=== PATIENT | male | born 1970 | race African-American/Black ===

== ENCOUNTER 2021-07-29 17:15 | Emergency (ER) | payer OTHER ==
[2021-07-29 17:20] VITALS: TEMP 98.9; BMI 30.8
[2021-07-29] MEDS ORDERED: ONDANSETRON *ODT* 4 MG TABLET SL ONE (17:50)
[2021-07-29] MEDS ORDERED: ONDANSETRON *ODT* 4 MG TABLET ONE (18:01)
[2021-07-29 18:09] VITALS: BP 172/89; PULSE 87
[2021-07-29] MEDS ORDERED: IBUPROFEN 400 MG TABLET (FP) PO ONE ×2 (18:20→18:26)
[2021-07-31 15:07] LABS: SARS-CoV-2 NAA Not Detected (Not Detected)
== END 2021-07-29 18:35 | disposition home or self-care (01) ==
LOC: FER 17:15
DX: R11.0 Nausea (principal)
CPT/HCPCS: 99283-25; C9803-CS; Q0162; U0003; U0005

== ENCOUNTER 2021-12-30 04:01 | Emergency (ER) | payer OTHER ==
[2021-12-30 04:20] VITALS: TEMP 98.2; BMI 31.6
[2021-12-30] MEDS ORDERED: SODIUM CHLORIDE 0.9% 500 ML INFUS.BAG IV ONE (04:54)
[2021-12-30] MEDS ORDERED: ACETAMINOPHEN 1000 MG/100 ML BAG IVPB ONE (04:55)
[2021-12-30] MEDS ORDERED: ACETAMINOPHEN INJECTION 100 ML IVPB ONE (04:56)
[2021-12-30] MEDS ORDERED: DIPHTH,PERTUSS(ACELL),TET 0.5 ML DISP.SYRIN IM ONE ×2 (05:00→05:02)
[2021-12-30] MEDS ORDERED: BACITRACIN 15 GM TUBE TOPICAL OINTMENT TP ONE (05:06)
[2021-12-30 05:42] LABS: CALCIUM 9.1 mg/dL (8.5-10.1)
[2021-12-30 05:43] LABS: ALBUMIN 3.8 g/dl (3.4-5.0); BLOOD UREA NITROGEN 12.4 mg/dL (7-18)
[2021-12-30 05:46] LABS: CREATININE 1.3 mg/dL (0.55-1.3)
[2021-12-30 05:48] LABS: BILIRUBIN,TOTAL 0.3 mg/dL (0.2-1); TOT PROT 7.6 g/dl (6.4-8.2)
[2021-12-30 07:11] VITALS: BP 148/87; PULSE 95; RESP 16
[2021-12-30] MEDS ORDERED: oxyCODONE HCL 5 MG TABLET PO ONE (07:41)
[2021-12-30] MEDS ORDERED: oxyCODONE HCL 5 MG TABLET ONE (07:45)
== END 2021-12-30 07:59 | disposition home or self-care (01) ==
LOC: FER 04:01
PROC: 3E0333Z Introduction of Anti-inflammatory into Peripheral Vein, Percutaneous Approach (ICD-10-PCS; principal; 2021-12-30)
PROC: 3E0234Z Introduction of Serum, Toxoid and Vaccine into Muscle, Percutaneous Approach (ICD-10-PCS; 2021-12-30)
DX: S60.511A Abrasion of right hand, initial encounter (principal); S02.40FA Zygomatic fracture, left side, initial encounter for closed fracture; S62.242A Displaced fracture of shaft of first metacarpal bone, left hand, initial encounter for closed fracture; V28.5XXA Motorcycle passenger injured in noncollision transport accident in traffic accident, initial encounter
CPT/HCPCS: 36415; 70450-TC; 71046-TC-FY; 72125-TC; 73070-TC-LT-FY; 73130-TC-RT-FY; 73560-TC-LT-FY; 80053; 80307; 90715; 99285-25

== ENCOUNTER 2023-05-30 14:20 | Emergency (ER) | payer OTHER ==
[2023-05-30 14:43] VITALS: BP 151/108; PULSE 81; RESP 16; TEMP 98.8; BMI 30.2
[2023-05-30] MEDS ORDERED: KETOROLAC TROMETHAMINE 30 MG/1 ML VIAL ONE (15:24)
[2023-05-30] MEDS: SODIUM CHLORIDE 0.9% 1000 ML INFUS.BAG IV ONE (15:35)
[2023-05-30] MEDS: KETOROLAC TROMETHAMINE 30 MG/1 ML VIAL IVPUSH ONE (15:35)
[2023-05-30 15:44] LABS: HEMATOCRIT 49.8 % (35.4-49); HEMOGLOBIN 16.7 G/dL (11.7-16.9); MCH 30.5 pg (25.7-33.7); MCHC 33.6 g/dl (32.0-35.9); MEAN CELL VOLUME 90.9 fl (80-96); MEAN PLT VOLUME 8.5 fl (7.5-11.1); RBC 5.48 10^6/uL (4.00-5.60); RDW 14.3 % (11.9-15.9); WHITE BLOOD COUNT 7.3 10^3/uL (4.0-10.8)
[2023-05-30 15:47] LABS: PLATELET ESTIMATE ADEQUATE
[2023-05-30 15:52] LABS: ALBUMIN 4.6 g/dl (3.4-5.0); BILIRUBIN,TOTAL 0.7 mg/dl (0.2-1); CALCIUM 9.6 mg/dl (8.5-10.1); POTASSIUM 3.8 mmol/L (3.5-5.1); TOT PROT 7.5 g/dl (6.4-8.2)
== END 2023-05-30 19:00 | disposition home or self-care (01) ==
LOC: FER 14:20
PROC: 3E0333Z Introduction of Anti-inflammatory into Peripheral Vein, Percutaneous Approach (ICD-10-PCS; principal; 2023-05-30)
DX: R10.32 Left lower quadrant pain (principal); R11.2 Nausea with vomiting, unspecified
CPT/HCPCS: 36415; 74176-TC; 80053; 81003; 83690; 85027; 87086; 99284-25

== ENCOUNTER 2023-09-11 08:54 | Emergency (ER) | payer OTHER ==
[2023-09-11 09:16] VITALS: BP 156/106; PULSE 87; RESP 20; TEMP 98.2; BMI 30.8
[2023-09-11] MEDS ORDERED: FAMOTIDINE 20 MG/50 ML IVPB 20 MG/50 ML MG IVPB ONE (09:22)
[2023-09-11] MEDS ORDERED: MAG HYDROX/AL HYDROX/SIMETH 30 ML UNIT-DOSE CUP ONE (09:22)
[2023-09-11] MEDS ORDERED: ACETAMINOPHEN INJECTION 100 ML IVPB ONE (09:22)
[2023-09-11] MEDS ORDERED: ONDANSETRON 4 MG/2 ML VIAL ONE (09:23)
[2023-09-11] MEDS: LACTATED RINGERS SOLUTION 1000 ML INFUS.BAG IV ONE (10:06)
[2023-09-11] MEDS: FAMOTIDINE 20 MG/50 ML IVPB 20 MG/50 ML MG IVPB ONE (10:07)
[2023-09-11] MEDS: MAG HYDROX/AL HYDROX/SIMETH 30 ML UNIT-DOSE CUP PO ONE (10:07)
[2023-09-11] MEDS: ONDANSETRON 4 MG/2 ML VIAL IVPUSH ONE (10:07)
[2023-09-11] MEDS: ACETAMINOPHEN 1000 MG/100 ML BAG IVPB ONE (10:07)
[2023-09-11 10:36] LABS: ALBUMIN 5.1 g/dl (3.4-5.0); BILIRUBIN,TOTAL 0.9 mg/dl (0.2-1); CALCIUM 10.1 mg/dl (8.5-10.1); HEMATOCRIT 50.5 % (35.4-49); HEMOGLOBIN 16.8 G/dL (11.7-16.9); MCH 30.8 pg (25.7-33.7); MCHC 33.2 g/dl (32.0-35.9); MEAN CELL VOLUME 92.6 fl (80-96); MEAN PLT VOLUME 8.3 fl (7.5-11.1); PLATELET COUNT 275.4 10^3/uL (134-434); POTASSIUM 3.6 mmol/L (3.5-5.1); RBC 5.45 10^6/uL (4.00-5.60); RDW 13.9 % (11.9-15.9); TOT PROT 8.1 g/dl (6.4-8.2); WHITE BLOOD COUNT 8.9 10^3/uL (4.0-10.8)
[2023-09-11] MEDS ORDERED: FAMOTIDINE 20 MG TABLET ONE (10:40)
[2023-09-11] MEDS ORDERED: ONDANSETRON *ODT* 4 MG TABLET ONE (10:40)
[2023-09-11] MEDS: ONDANSETRON *ODT* 4 MG TABLET SL ONE (10:47)
[2023-09-11] MEDS: FAMOTIDINE 10 MG TABLET PO ONE (10:47)
[2023-09-11 10:53] LABS: PLATELET ESTIMATE ADEQUATE
== END 2023-09-11 11:26 | disposition home or self-care (01) ==
LOC: FER 08:54
PROC: 3E033NZ Introduction of Analgesics, Hypnotics, Sedatives into Peripheral Vein, Percutaneous Approach (ICD-10-PCS; principal; 2023-09-11)
PROC: 3E033GC Introduction of Other Therapeutic Substance into Peripheral Vein, Percutaneous Approach (ICD-10-PCS; 2023-09-11)
DX: R10.9 Unspecified abdominal pain (principal); R11.2 Nausea with vomiting, unspecified; R19.7 Diarrhea, unspecified; R53.83 Other fatigue
CPT/HCPCS: 36415; 80053; 85027; 99284-25; J0131; Q0162

== ENCOUNTER 2024-02-29 08:50 | Emergency (ER) | payer OTHER ==
[2024-02-29 08:59] VITALS: RESP 18; TEMP 98.2; BMI 29.0
[2024-02-29] MEDS ORDERED: ONDANSETRON 4 MG/2 ML VIAL ONE (09:27)
[2024-02-29] MEDS ORDERED: morphine SULFATE 4 MG/ML VIAL ONE ×2 (09:27→14:53)
[2024-02-29] MEDS: ONDANSETRON 4 MG/2 ML VIAL IVPUSH ONE (10:00)
[2024-02-29] MEDS: SODIUM CHLORIDE 500 ML IV STA (10:06)
[2024-02-29] MEDS: morphine CARPU-JECT 4 MG/1 ML DISP.SYRIN IVPUSH ONE ×2 (10:06→14:57)
[2024-02-29 10:24] LABS: INR 1.1 (0.83-1.09); PROTHROMBIN TIME (PATIENT) 12.5 SEC (9.7-13.0)
[2024-02-29 10:31] LABS: HEMATOCRIT 48.6 % (35.4-49); HEMOGLOBIN 16.4 G/dL (11.7-16.9); MCH 31.1 pg (25.7-33.7); MCHC 33.8 g/dl (32.0-35.9); MEAN CELL VOLUME 91.9 fl (80-96); MEAN PLT VOLUME 8.2 fl (7.5-11.1); PLATELET COUNT 283.8 10^3/uL (134-434); RBC 5.29 10^6/uL (4.00-5.60); RDW 13.1 % (11.9-15.9); WHITE BLOOD COUNT 7.4 10^3/uL (4.0-10.8)
[2024-02-29 10:42] LABS: PLATELET ESTIMATE ADEQUATE
[2024-02-29 15:54] LABS: ALBUMIN 4.6 g/dl (3.4-5.0); CALCIUM 9.3 mg/dl (8.5-10.1); POTASSIUM 4.1 mmol/L (3.5-5.1); TOT PROT 7.7 g/dl (6.4-8.2)
[2024-02-29] MEDS ORDERED: hydrALAZINE HCL 20 MG/ML VIAL ONE (17:17)
[2024-02-29] MEDS: hydrALAZINE HCL 20 MG/ML VIAL IVPUSH ONE (17:23)
[2024-02-29 19:23] LABS: URINE APPEARANCE CLEAR; URINE BILIRUBIN NEGATIVE (NEGATIVE); URINE COLOR YELLOW; URINE GLUCOSE (UA) NEGATIVE (NEGATIVE); URINE KETONE TRACE (NEGATIVE)
[2024-02-29 19:24] LABS: EPI CELLS 3 /uL (0-25.1); HYALINE CASTS 0.13 /uL (0-3.1); PH,URINE 6.5 (5.0-8.0); URINE BACTERIA 1.8 /uL (0-1359); URINE LEUK ESTERASE NEGATIVE (NEGATIVE); URINE NITRITE NEGATIVE (NEGATIVE); URINE PROTEIN TRACE (NEGATIVE); URINE RBC 23.8 /uL (0-23.9); URINE WBC 10.4 /uL (0-25.8)
[2024-02-29 19:44] VITALS: BP 144/95; PULSE 89
[2024-02-29] MEDS ORDERED: PANTOPRAZOLE SODIUM 40 MG VIAL ONE (19:46)
[2024-02-29] MEDS ORDERED: MAG HYDROX/AL HYDROX/SIMETH 30 ML UNIT-DOSE CUP ONE (19:46)
[2024-02-29] MEDS ORDERED: FAMOTIDINE 20 MG/50 ML IVPB 20 MG/50 ML MG IVPB ONE (19:47)
[2024-02-29] MEDS: MAG HYDROX/AL HYDROX/SIMETH 30 ML UNIT-DOSE CUP PO ONE (20:01)
[2024-02-29] MEDS: FAMOTIDINE 20 MG/50 ML IVPB 20 MG/50 ML MG IVPB ONE (20:01)
[2024-02-29] MEDS: PANTOPRAZOLE SODIUM 40 MG VIAL IVPUSH ONE (20:01)
== END 2024-02-29 20:53 | disposition home or self-care (01) ==
LOC: JER 08:50 → FER 08:50 → JER 20:53
PROC: 3E033GC Introduction of Other Therapeutic Substance into Peripheral Vein, Percutaneous Approach (ICD-10-PCS; principal; 2024-02-29)
PROC: 3E033GC Introduction of Other Therapeutic Substance into Peripheral Vein, Percutaneous Approach (ICD-10-PCS; 2024-02-29)
PROC: 3E033NZ Introduction of Analgesics, Hypnotics, Sedatives into Peripheral Vein, Percutaneous Approach (ICD-10-PCS; 2024-02-29)
PROC: 3E033NZ Introduction of Analgesics, Hypnotics, Sedatives into Peripheral Vein, Percutaneous Approach (ICD-10-PCS; 2024-02-29)
PROC: 3E033GC Introduction of Other Therapeutic Substance into Peripheral Vein, Percutaneous Approach (ICD-10-PCS; 2024-02-29)
PROC: 3E033GC Introduction of Other Therapeutic Substance into Peripheral Vein, Percutaneous Approach (ICD-10-PCS; 2024-02-29)
PROC: 3E0337Z Introduction of Electrolytic and Water Balance Substance into Peripheral Vein, Percutaneous Approach (ICD-10-PCS; 2024-02-29)
DX: R10.11 Right upper quadrant pain (principal); R11.10 Vomiting, unspecified
CPT/HCPCS: 36415; 74177-TC; 76705-TC; 80053; 81003; 83690; 84484; 85027; 85610; 86850; 86900; 86901; 87086; 93005; 93010; 99285-25

== ENCOUNTER 2024-03-01 09:49 | Observation (INO) | payer OTHER ==
[2024-03-01] MEDS: FAMOTIDINE 20 MG/50 ML IVPB 20 MG/50 ML MG IVPB ONE (10:55)
[2024-03-01] MEDS: SODIUM CHLORIDE 0.9% 500 ML INFUS.BAG IV ONE (10:55)
[2024-03-01] MEDS: MAG HYDROX/AL HYDROX/SIMETH -MYLANTA- ORAL SUSPENSION PO ONE (10:55)
[2024-03-01 11:18] LABS: BASO % 0.5 % (0-2.0); EOS % 0.1 % (0-4.5); HEMATOCRIT 49.1 % (35.4-49); HEMOGLOBIN 16.6 GM/dL (11.7-16.9); LYMPH % 20.2 % (8-40); MCH 30.8 pg (25.7-33.7); MCHC 33.9 g/dl (32.0-35.9); MEAN CELL VOLUME 90.9 fl (80-96); MEAN PLT VOLUME 7.4 fl (7.5-11.1); MONO % 6.7 % (3.8-10.2); NEUT % 72.5 % (42.8-82.8); PLATELET COUNT 300 10^3/uL (134-434); RDW 12.6 % (11.9-15.9); WHITE BLOOD COUNT 7.1 K/mm3 (4.0-10.0)
[2024-03-01] MEDS ORDERED: MAG HYDROX/AL HYDROX/SIMETH 30 ML UNIT-DOSE CUP ONE (11:18)
[2024-03-01] MEDS ORDERED: FAMOTIDINE 20 MG/50 ML IVPB 20 MG/50 ML MG IVPB ONE (11:18)
[2024-03-01] MEDS ORDERED: ACETAMINOPHEN INJECTION 100 ML ONE (11:18)
[2024-03-01 11:35] LABS: POTASSIUM 3.9 mmol/L (3.5-5.1)
[2024-03-01 11:37] LABS: CALCIUM 9.6 mg/dL (8.5-10.1)
[2024-03-01 11:38] LABS: MAGNESIUM 2.3 mg/dL (1.8-2.4)
[2024-03-01 11:41] LABS: CREATININE 1.2 mg/dL (0.55-1.3)
[2024-03-01 11:42] LABS: TOT PROT 8.3 g/dl (6.4-8.2)
[2024-03-01] MEDS: ACETAMINOPHEN 1000 MG/100 ML BAG IVPB ONE (11:43)
[2024-03-01 11:45] LABS: URINE APPEARANCE CLEAR; URINE BILIRUBIN NEGATIVE (NEGATIVE); URINE COLOR DK YELLOW; URINE GLUCOSE (UA) NEGATIVE (NEGATIVE); URINE KETONE 1+ (NEGATIVE); URINE LEUK ESTERASE NEGATIVE (NEGATIVE); URINE NITRITE NEGATIVE (NEGATIVE); URINE PROTEIN TRACE (NEGATIVE)
[2024-03-01] MEDS ORDERED: ONDANSETRON 4 MG/2 ML VIAL ONE (12:04)
[2024-03-01] MEDS: ONDANSETRON 4 MG/2 ML VIAL IVPUSH ONE (12:18)
[2024-03-01] MEDS ORDERED: MORPHINE SULFATE 2 MG/ML SYRINGE ONE (13:44)
[2024-03-01] MEDS: morphine SULFATE 4 MG/ML VIAL IVPUSH ONE (13:47)
[2024-03-01] MEDS ORDERED: ONDANSETRON 4 MG/2 ML VIAL IVPUSH PRN (15:05)
[2024-03-01] MEDS ORDERED: amLODIPine BESYLATE 10 MG TABLET (FP) ONE (15:48)
[2024-03-01] MEDS ORDERED: PANTOPRAZOLE SODIUM 40 MG VIAL ONE (15:48)
[2024-03-01] MEDS: DEXTROSE 5%-0.45% SALINE 1,000 ML IV SCH (15:48)
[2024-03-01] MEDS: PANTOPRAZOLE SODIUM 40 MG VIAL IVPUSH SCH (16:02)
[2024-03-01] MEDS: amLODIPine BESYLATE 10 MG TABLET (FP) PO ONE (16:02)
[2024-03-01 17:42] VITALS: BMI 29.5
[2024-03-02] MEDS: ACETAMINOPHEN 1000 MG/100 ML BAG IVPB PRN (07:13)
[2024-03-02 08:45] LABS: BASO % 0.4 % (0-2.0); EOS % 0.7 % (0-4.5); HEMOGLOBIN 16.2 GM/dL (11.7-16.9); LYMPH % 31.3 % (8-40); MCH 31.2 pg (25.7-33.7); MCHC 35.1 g/dl (32.0-35.9); MEAN CELL VOLUME 88.8 fl (80-96); MEAN PLT VOLUME 7.6 fl (7.5-11.1); MONO % 11.2 % (3.8-10.2); NEUT % 56.4 % (42.8-82.8); PLATELET COUNT 312 10^3/uL (134-434); RBC 5.18 M/mm3 (4.00-5.60); RDW 12.4 % (11.9-15.9); WHITE BLOOD COUNT 6.4 K/mm3 (4.0-10.0)
[2024-03-02 08:58] LABS: POTASSIUM 3.5 mmol/L (3.5-5.1)
[2024-03-02 09:14] LABS: ALBUMIN 3.8 g/dl (3.4-5.0); BLOOD UREA NITROGEN 9.3 mg/dL (7-18); CALCIUM 9.3 mg/dL (8.5-10.1)
[2024-03-02 09:16] LABS: TOT PROT 7.7 g/dl (6.4-8.2)
[2024-03-02] MEDS: DEXTROSE 5%-0.45% SALINE 1,000 ML IV SCH (10:16)
[2024-03-02] MEDS: POLYETHYLENE GLYCOL (HEALTHYLAX) 3350 17 GM PACKET PO PRN (10:16)
[2024-03-02] MEDS: amLODIPine BESYLATE 10 MG TABLET (FP) PO SCH (10:17)
[2024-03-02 13:48] LABS: URINE BARBITURATES NEGATIVE (NEGATIVE)
[2024-03-02 13:49] LABS: COCAINE, UR NEGATIVE (NEGATIVE); METHADONE, UR NEGATIVE (NEGATIVE); PHENCYCLIDINE,URINE NEGATIVE (NEGATIVE)
[2024-03-02 13:53] LABS: OPIATES, URI POSITIVE (NEGATIVE); URINE AMPHETAMINES NEGATIVE (NEGATIVE); URINE BENZODIAZEPINES NEGATIVE (NEGATIVE)
[2024-03-02] MEDS: hydrALAZINE HCL 10 MG TABLET PO ONE ×2 (14:43→18:32)
[2024-03-03 08:35] LABS: BASO % 0.5 % (0-2.0); EOS % 0.7 % (0-4.5); HEMOGLOBIN 16.4 GM/dL (11.7-16.9); LYMPH % 34.2 % (8-40); MCH 31.1 pg (25.7-33.7); MCHC 34.9 g/dl (32.0-35.9); MEAN CELL VOLUME 89.3 fl (80-96); MEAN PLT VOLUME 7.5 fl (7.5-11.1); MONO % 8.8 % (3.8-10.2); NEUT % 55.8 % (42.8-82.8); PLATELET COUNT 307 10^3/uL (134-434); RBC 5.26 M/mm3 (4.00-5.60); RDW 12.6 % (11.9-15.9); WHITE BLOOD COUNT 6.2 K/mm3 (4.0-10.0)
[2024-03-03 08:37] LABS: INR 1.11 (0.83-1.09); PROTHROMBIN TIME (PATIENT) 12.7 SEC (9.7-13.0)
[2024-03-03 08:45] LABS: POTASSIUM 3.7 mmol/L (3.5-5.1)
[2024-03-03 08:47] LABS: CALCIUM 9.2 mg/dL (8.5-10.1)
[2024-03-03 08:48] LABS: ALBUMIN 3.9 g/dl (3.4-5.0); BLOOD UREA NITROGEN 7.7 mg/dL (7-18); MAGNESIUM 2.3 mg/dL (1.8-2.4)
[2024-03-03 08:52] LABS: BILIRUBIN,TOTAL 1.1 mg/dL (0.2-1)
[2024-03-03 08:53] LABS: TOT PROT 7.7 g/dl (6.4-8.2)
[2024-03-03 10:34] VITALS: RESP 18
[2024-03-03] MEDS: PANTOPRAZOLE 40 MG TABLET PO SCH (10:46)
[2024-03-03 14:28] VITALS: BP 113/82; PULSE 100; TEMP 98.2
== END 2024-03-03 15:36 | disposition home or self-care (01) ==
LOC: JER 09:49 → JERBED 13:03 → J7W 17:23
PROVIDERS: ADMIT Internal Medicine
PROC: 3E033NZ Introduction of Analgesics, Hypnotics, Sedatives into Peripheral Vein, Percutaneous Approach (ICD-10-PCS; principal; 2024-03-01)
PROC: 3E033GC Introduction of Other Therapeutic Substance into Peripheral Vein, Percutaneous Approach (ICD-10-PCS; 2024-03-01)
PROC: 3E0337Z Introduction of Electrolytic and Water Balance Substance into Peripheral Vein, Percutaneous Approach (ICD-10-PCS; 2024-03-01)
PROC: 0DB98ZX Excision of Duodenum, Via Natural or Artificial Opening Endoscopic, Diagnostic (ICD-10-PCS; 2024-03-01)
PROC: 0DB68ZX Excision of Stomach, Via Natural or Artificial Opening Endoscopic, Diagnostic (ICD-10-PCS; 2024-03-01)
DX: K29.70 Gastritis, unspecified, without bleeding (principal); K29.80 Duodenitis without bleeding; R73.03 Prediabetes; I10 Essential (primary) hypertension; Z87.828 Personal history of other (healed) physical injury and trauma; K59.00 Constipation, unspecified
CPT/HCPCS: 36415; 74177-TC; 80053; 80307; 81003; 83036; 83690; 83735; 85025; 85610; 87086; 88305-TC; 88342-TC; 93005; 93010; 96361; 96365; 96367; 96375; 96376; 99285-25; G0378; J0131; Q9967

== ENCOUNTER 2024-06-03 04:28 | Day surgery (SDC) | payer OTHER ==
[2024-05-25 08:02] VITALS: BMI 30.7
[2024-06-03 09:07] VITALS: TEMP 98.3
[2024-06-03 09:27] VITALS: PULSE 75; RESP 20
[2024-06-03 09:37] VITALS: BP 139/99
== END 2024-06-03 09:54 | disposition home or self-care (01) ==
LOC: JASU-ENDO 04:28
PROVIDERS: ATTEND Internal Medicine Gastroenterology
PROC: 0DB98ZX Excision of Duodenum, Via Natural or Artificial Opening Endoscopic, Diagnostic (ICD-10-PCS; 2024-06-03)
PROC: 0DJD8ZZ Inspection of Lower Intestinal Tract, Via Natural or Artificial Opening Endoscopic (ICD-10-PCS; principal; 2024-06-03 08:30)
DX: Z12.11 Encounter for screening for malignant neoplasm of colon (principal); Z80.0 Family history of malignant neoplasm of digestive organs; D13.2 Benign neoplasm of duodenum; K29.80 Duodenitis without bleeding
CPT/HCPCS: 88305-TC